=== PATIENT | male | born 1945 | race Caucasian/White ===

== ENCOUNTER 2018-04-10 14:44 | Outpatient (CLI) | payer MEDICARE, OTHER ==
--- NOTE | 2018-04-10 16:59 | MRI Report ---
Procedure Date: 04/10/2018 Accession Number: [id number] / [id number] Procedure: MRI - Knee RT W/O CPT Code: FULL RESULT: EXAM: RIGHT KNEE MRI WITHOUT CONTRAST EXAM DATE: 04/10/2018 03:23 PM. CLINICAL HISTORY: Chondromalacia patellae, left knee, right knee. COMPARISON: None. TECHNIQUE: Multiplanar, multisequence T1-weighted and fluid-sensitive sequences of the knee without contrast. Other: None. FINDINGS: Bones: Subchondral edema in the medial tibial condyle. Small medial compartment osteophytes. The lateral and patellofemoral compartments appear unremarkable.. Articular Cartilage: There is moderate to severe hyaline cartilage thinning in the medial compartment with regions of denuded bone. Medial Meniscus: There is a complex tear of the body of the medial meniscus with an adjacent 7 x 16 x 32 mm medial parameniscal cyst. There is moderate medial extrusion. There is a longitudinal tear of the posterior horn. Lateral Meniscus: The lateral meniscus is intact. Cruciate Ligaments: The anterior and posterior cruciate ligaments are intact. Collateral Ligaments: The medial collateral and lateral collateral ligamentous structures are intact. Tendons: The quadriceps, patellar, semimembranosus, and popliteus tendons are unremarkable. Musculature: No edema or fatty atrophy. Other: Small joint effusion. There is a small popliteal cyst. Subcutaneous fluid is seen tracking along the medial aspect of the joint suggesting a leak from the popliteal cyst off from the parameniscal cysts. No loose bodies. The medial and lateral retinacula are intact. The subcutaneous tissues and fat pads are unremarkable. IMPRESSION: 1. Moderate medial compartment osteoarthritis. 2. Complex tear of the body of the medial meniscus with extrusion. Accompanying longitudinal tear of the posterior horn. Medial parameniscal cyst, which appears to have leaked into the subcutaneous tissues. 3. Small joint effusion with a popliteal cyst. [facility] MUSCULOSKELETAL RADIOLOGY SECTION
--- NOTE | 2018-04-10 17:27 | MRI Report ---
Procedure Date: 04/10/2018 Accession Number: [id number] / [id number] Procedure: MRI - Knee LT W/O CPT Code: FULL RESULT: EXAM: LEFT KNEE MRI WITHOUT CONTRAST EXAM DATE: 04/10/2018 03:35 PM. CLINICAL HISTORY: Chondromalacia patellae, left knee and right knee. COMPARISON: None. TECHNIQUE: Multiplanar, multisequence T1-weighted and fluid-sensitive sequences of the knee without contrast. Other: None. FINDINGS: Bones: There is moderate marrow edema in the medial femoral and tibial condyles. There are small medial compartment osteophytes. The lateral and patellofemoral compartments appear unremarkable.. Articular Cartilage: There is moderate to severe thinning of the hyaline cartilage in the medial compartment. There are small medial compartment osteophytes. There is mild thinning of the hyaline cartilage of the lateral compartment. The patellofemoral compartment appears unremarkable. Medial Meniscus: There is a radial tear of the posterior horn of the medial meniscus. There is medial extrusion of the body with a complex tear. Lateral Meniscus: The lateral meniscus is intact. Cruciate Ligaments: The anterior and posterior cruciate ligaments are intact. Collateral Ligaments: The medial collateral and lateral collateral ligamentous structures are intact. Tendons: The quadriceps, patellar, semimembranosus, and popliteus tendons are unremarkable. Musculature: No edema or fatty atrophy. Other: There is a moderate-sized joint effusion with a large popliteal cyst.. No loose bodies. The medial and lateral retinacula are intact. The subcutaneous tissues and fat pads are unremarkable. IMPRESSION: 1. Moderate medial compartment osteoarthritis. 2. Radial tear of the posterior horn of the medial meniscus with medial extrusion and a complex tear of the body. 3. Mild lateral compartment osteoarthritis. 4. Moderate-sized joint effusion with a large popliteal cyst. RAD[facility] MUSCULOSKELETAL RADIOLOGY SECTION
== END 2018-04-10 14:45 | disposition home or self-care (01) ==
LOC: DI 14:44
PROVIDERS: ATTEND Orthopaedic Surgery Orthopaedic Trauma
DX: M17.0 Bilateral primary osteoarthritis of knee (principal); S83.242A Other tear of medial meniscus, current injury, left knee, initial encounter; M71.22 Synovial cyst of popliteal space [Baker], left knee; M25.462 Effusion, left knee; M25.461 Effusion, right knee; S83.231A Complex tear of medial meniscus, current injury, right knee, initial encounter; M71.21 Synovial cyst of popliteal space [Baker], right knee

== ENCOUNTER 2019-10-05 09:22 | Outpatient (CLI) | payer MEDICARE, OTHER ==
--- NOTE | 2019-10-05 15:27 | SLEEP CARE CONSULTATION ---
Information from patient questionnaire entered by Omaira Solis. I have reviewed and concur with the information entered by Omaira Solis. This document represents the service I personally performed and the decisions made by me, Andrew Austin MD, [facility]. History of Present Illness Reason for Visit: New patient, Previously diagnosed sleep apnea, sleep apnea on CPAP therapy Duration of Symptoms: 20 years Usual bedtime: [id number] Time it takes to fall asleep: 5 minutes Snores at night: Yes Observed to quit breathing while asleep: Yes Sleeps alone due to snoring: No Number of times waking at night: 2-3 Reasons for waking at night: reports: Bathroom Toss, Turn, or Twitch while sleeping: Yes Recalls having dreams: Yes Feels refreshed in the morning: No Morning headache: Yes (sometimes) Sleepy or fatigued during the day: Yes Ever fallen asleep while driving: No Takes day naps: Yes Dreams during day naps: No Prior sleep studies: Yes Year and Where: 2012 [facility] in [place], [place] Additional HPI information: I had the pleasure of seeing Mr. Cannon today regarding obstructive sleep apnea- hypopnea. As you know, he is a 74 year old gentleman who was diagnosed with the sleep-disordered breathing at [facility] on 03/23/2010. The sleep study report is not available. He was prescribed a CPAP device set He uses every night and all night. He is on his fourth machine which is set on 13 cmH2O. The compliance data show usage in 178 out of the past 180 nights, averaging 9.7 hours a night. The residual AHI is 0.5 and average time in large leak per day is 5 minutes. He wears a Respironics Wisp nasal mask. He gets his supplies from [employer]. He finds the treatment very beneficial. Subjective Initial [place] Sleepiness Scale score: 11 Past Medical History Past Medical History: reports: Hypertension, Congestive Heart Failure, Arthritis, Coronary Heart Disease, GERD, Attention deficit Social History The patient's occupation is retired. Patient is and lives in [place]. Have you smoked in the past 12 months: No Cigarettes per day (20/pack): 40 Years of smokin Quit date: 1990 Smoking Pack Years: 60.0 Alcohol use: No Family History Family history of sleep disordered breathing: Yes Family Hx Sleep Apnea: Sibling: Snoring (daughter), Other: Snoring Allergies and Home Medications Drug allergies reviewed: Yes Home medication list reviewed: Yes Allergy and home medication list: Meds: Amlodipine, aspirin, ctirizine, Crestor, eplerenon, Flonase, hydralazine, hydrochlorothiazide, Lovaza, metformin, metoprolol, niacin, pantoprazole, ramipril, Ranexa, and Xopenex Allergies: Actos, albuterol, clonazepam, dexamethason, Lexapro, procardia, spironolactone, sudafed, cipro, and clonidine Review of Systems Weight gain over past 5 years: 30 Cardiovascular: reports: high blood pressure, palpitations Respiratory: denies: shortness of breath, wheeze, sputum production, chronic cough, other Gastrointestinal: reports: heartburn Urinary: reports: frequency Neurological: denies: headaches, seizure, head trauma, disorientation, speech dysfunction, gait or balance problems, fainting or unconsciousness, other Psychiatric: denies: Attention Deficit Hyperactivity, anxiety, depression, mood disorder, claustrophobia, other Ear/Nose/Throat: reports: dry mouth/throat, injury to nose, wisdom teeth removed Endocrine: reports: sluggishness, too hot or cold, excessive thirst, unexplained weakness Musculoskeletal: reports: joint pain, back pain, muscle pain or cramping Immunologic: denies: sneezing, rash, itching, allergies to food or environment, other Physical Exam Vital signs obtained and entered by: Dr. Austin Blood Pressure: 164/91 Cuff size: regular Heart Rate: 64 O2 Saturation: 95 Height: 5 ft 6 in Weight: 233 lb Body Mass Index: 37.5 BMI Classification: Obesity Class 2 Neck circumference: 19 Mood/affect: normal HEENT: No craniofacial malformation Nostrils: patent to airflow Turbinates: normal Septum: midline Mouth and throat: narrow oropharynx Soft palate: long Hard palate: normal Uvula: normal Uvula visualization: 25% Mallampati Class III Tongue: enlarged in size with teeth mckenna on lateral edges Tonsils: small Chin and jaw: normal size and position Neck: normal w/o lymphadenopathy or thyromegaly Heart: regular rate and rhythm, murmur Lungs: clear bilaterally Abdomen: soft, non-tender Extremities: no edema or clubbing Neurologic: intact, no focal deficits Impression and Plan IMPRESSION: 1. Obstructive Sleep Apnea-Hypopnea Syndrome, as previously diagnosed but of unknown severity. The patient has had good treatment compliance. The current pressure setting appears effective and comfortable. The patient experiences improvement on the treatment. Narrow oropharynx and obesity are common predisposing factors for obstructive sleep apnea-hypopnea syndrome. Because the CPAP is now older than the useful life of 5 years, I will order the patient a new one and make it an autoCPAP set between 10 and 15 cmH2O. Plan: 1. Prescription made for an autoCPAP, heated humidifier, and related supplies. 2. Try a different nasal mask. 3. Attempt to lose weight. 4. Return for follow up after one month on the new machine. I spent 100% of this 20 minute visit face to face with the patient with greater than 50% of this was spent time counseling the patient and coordination of care.
[2019-10-05 15:28] VITALS: BP 164/91
== END 2019-10-05 09:23 | disposition home or self-care (01) ==
LOC: SC 09:22
PROVIDERS: ATTEND Internal Medicine Pulmonary Disease
DX: G47.33 Obstructive sleep apnea (adult) (pediatric) (principal); E66.9 Obesity, unspecified; Z68.37 Body mass index [BMI] 37.0-37.9, adult
CPT/HCPCS: 99203; G0463; 99212

== ENCOUNTER 2019-10-30 19:23 | Outpatient (CLI) | payer MEDICARE, OTHER | END 2019-10-30 19:24 | disposition home or self-care (01) | LOC: SC 19:23 | PROVIDERS: ATTEND Internal Medicine Pulmonary Disease | DX: G47.33 Obstructive sleep apnea (adult) (pediatric) (principal); G47.61 Periodic limb movement disorder | CPT/HCPCS: 95810 ==

== ENCOUNTER 2019-11-09 11:00 | Outpatient (CLI) | payer MEDICARE, OTHER ==
--- NOTE | 2019-11-10 12:01 | SLEEP CARE CONSULTATION ---
Information from patient questionnaire entered by Omaira Solis. I have reviewed and concur with the information entered by Omaira Solis. This document represents the service I personally performed and the decisions made by me, Andrew Austin MD, [facility]. History of Present Illness Reason for follow up: with sleep study Equipment type: CPAP Equipment obtained from: [facility] Prior sleep studies: Yes Year and Where: 2019 [facility] HPI additional information: HPI: Mr. Cannon returned for follow up of the sleep study he had on 10/30/2019. The polysomnography showed that the patient had poor sleep efficiency several prolonged awakenings after the sleep onset and proposal rep awakening. The sleep architecture was abnormal for sleep fragmentation and lack of REM and slow wave sleep (N3). Respiratory monitoring showed moderate obstructive sleep apnea-hypopnea (AHI = 24.7) associated with frequent arousals, oxyhemoglobin desaturation and mild hypoxia (hodan oxygen saturation of 87%). The respiratory events occurred independently of sleep stage and body position (supine AHI = 16.2; non-supine = 28.96). Snore was light in intensity. There was severe periodic leg movement of sleep contributing to the sleep fragmentation. Cardiac rhythm was normal sinus rhythm with occasional premature ventricular contractions. No abnormal behavior (parasomnia) observed during the night. The patient was informed of these findings. I explained to him the pathophysiology behind obstructive sleep apnea. We then spent quite a bit of time discussing different treatment options. For mild obstructive sleep apnea, surgery and oral appliance are alternatives to nasal CPAP therapy but in moderate or severe cases, nasal CPAP is the most effective and reliable treatme nt. Weight loss in an obese individual is strongly recommended. After some discussion, he opted to continue with the CPAP therapy. Presently, he is using a CPAP at home set at 13 cmH2O. Subjective Patient concerns: reports: mask discomfort, air blowing in eyes, dry mouth, nose, throat Initial [place] Sleepiness Scale score: 11 Current [place] Sleepiness Scale score: 8 Allergies and Home Medications Drug allergies reviewed: Yes Home medication list reviewed: Yes Review of Systems Review of systems same as previous: Yes Physical Exam Weight: 233 lb Impression and Plan IMPRESSION: 1. Obstructive Sleep Apnea-Hypopnea Syndrome, moderate, associated with mild hypoxemia and sleep fragmentation. The patient has had good CPAP compliance all along. He also experiences benefits from the treatment. Because the CPAP is now older than the useful life of 5 years, I will order the patient a new one and make it an autoCPAP set between 8 and 13 cmH2O. PLAN: 1. Prescription made for an autoCPAP, heated humidifier, and related supplies. 2. Attempt to lose weight and avoid alcohol consumption near bedtime. 3. Return for follow up after one month on the new machine. I spent 100% of this visit face to face with the patient with greater than 50% of this was spent time counseling the patient and coordination of care.
== END 2019-11-09 11:01 | disposition home or self-care (01) ==
LOC: SC 11:00
PROVIDERS: ATTEND Internal Medicine Pulmonary Disease
DX: G47.33 Obstructive sleep apnea (adult) (pediatric) (principal)
CPT/HCPCS: 99213; G0463; 99212

== ENCOUNTER 2020-01-26 14:47 | Outpatient (CLI) | payer MEDICARE, OTHER ==
--- NOTE | 2020-01-26 14:33 | SLEEP CARE CONSULTATION ---
Information from patient questionnaire entered by Rosetta Albarado. I have reviewed and concur with the information entered by Rosetta Albarado. This document represents the service I personally performed and the decisions made by me, Andrew Austin MD, [facility]. History of Present Illness Previous diagnosis: Moderate, Obstructive Sleep Apnea-Hypopnea Syndrome AHI: 24.7 (in 2019) Reason for follow up: first compliance after device update Equipment type: CPAP Equipment obtained from: [facility] additional information: HPI: Mr. Cannon was called today to follow up of nasal CPAP therapy. He was diagnosed to have moderate obstructive sleep apnea-hypopnea syndrome. The patient wears a DreamWisp nasal mask. [employer] is his durable medical supplier. He reports using the device nightly and all through the night. The compliance report shows usage in 30 nights out of the past 30 nights, averaging 10.4 hours a night. The > 4 hour compliance rate for the past 30 days is 100%. He comp lained of no particular problem with the device such as soreness on the face, dry nose, epistaxis, nasal congestion or headache. He thinks that the pressure is comfortable. On the CPAP therapy he notices improvement in his sleep quality, and that he wakes up feeling fresher in the morning and more awake/alert during the day. [place] Sleepiness Scale score is 10. His notices no snore at all. The average residual AHI is 1.0; and average time in large leak per day is 1 minute. The 90th percentile pressure is 10.4 cmH2O. CPAP Compliance Data - Data Reviewed with Patient Average duration of nightly device use: 10.45 Compliance rate %: 100 Current pressure setting (cmH2O): 8-13 Humidity settin Heated hose settin Average residual AHI: 1.0 Average large leak: 1 min 10 sec Subjective Initial [place] Sleepiness Scale score: 11 Allergies and Home Medications Drug allergies reviewed: Yes Home medication list reviewed: Yes Review of Systems Review of systems same as previous: Yes Physical Exam Height: 5 ft 6 in Impression and Plan IMPRESSION: 1. Obstructive Sleep Apnea-Hypopnea Syndrome, moderate (AHI was 24.7), with the patient doing well on nasal CPAP therapy. He has excellent compliance and significant clinical improvement. The current pressure appears effective and comfortable. His mask fits fairly well. Overall, he is very satisfied with treatment and plans to continue with it long-term. No adjustment is necessary today. PLAN: 1. Continue with autoCPAP set at 8 - 13 cmH2O. 2. Try Respironics DreamWear nasal cushion mask or ResMed N30i mask 4. Return in one year for follow up or earlier if there is any problem with the treatment. I spent 100% of the 12 minute phone call with the patient with greater than 50% of this spent counseling the patient and coordination of care.
== END 2020-01-26 14:48 | disposition home or self-care (01) ==
LOC: SC 14:47
PROVIDERS: ATTEND Internal Medicine Pulmonary Disease
DX: G47.33 Obstructive sleep apnea (adult) (pediatric) (principal)

== ENCOUNTER 2021-01-23 10:58 | Outpatient (CLI) | payer MEDICARE, OTHER ==
--- NOTE | 2021-01-23 13:54 | SLEEP CARE CONSULTATION ---
Information from patient questionnaire entered by Rosetta Albarado. I have reviewed and concur with the information entered by Rosetta Albarado. This document represents the service I personally performed and the decisions made by me, Andrew Austin MD, [facility]. History of Present Illness Service Date and Time: 01/23/2021 1058 Previous diagnosis: Moderate, Obstructive Sleep Apnea-Hypopnea Syndrome AHI: 24.7 (in 2019)(RDI - 12 in 1996) Reason for follow up: annual (last seen 12/2019) Equipment type: CPAP Equipment obtained from: [employer] Mask style: Nasal Mask brand: Respironics (DreamWisp) Prior sleep studies: Yes Year and Where: 2019 - [facility] ; 1996- [facility] Type of Sleep Study: Polysomnography HPI additional information: HPI: Mr. Cannon was diagnosed to have moderate obstructive sleep apnea-hypopnea syndrome and returns today for his annual follow up of CPAP therapy. The patient purchased the device from [employer] and was fitted with a [employer] [place] nasal mask. He says that he prefers the Respironics EasyLife but the durable medical supplier could not find one for him. He continues to use the device nightly and all through the night. The compliance report shows that he uses the device 179 nights out of the past 180 nights, averaging 11 hours a night. He complains of no particular problem with the device such as soreness on the face, dry nose, epistaxis, nasal congestion or headache. He thinks that the pressure of 8 - 13 cmH2O is comfortable. On the CPAP therapy he notices improvement in his sleep quality, and that he wakes up feeling fresher in the morning and more awake/alert during the day. His notices no snore at all. [place] Sleepiness Scale score is 10. The average residual AHI is 1.4; and average time in large leak per day is 6 minutes a night. The 90th percentile pressure is 11.6 cmH2O. CPAP Compliance Data - Data Reviewed with Patient Average duration of nightly device use: 10 hr 58 min Compliance rate %: 99.4 (180 days) Current pressure setting (cmH2O): 8-13 Humidity settin Heated hose settin Average residual AHI: 1.4 Average large leak: 6 min 58 sec Subjective Patient concerns: reports: mask discomfort, air blowing in eyes, mask leak noise, dry mouth, nose, throat, other (headache) Initial [place] Sleepiness Scale score: 11 (in 2019) Current [place] Sleepiness Scale score: 10 Allergies and Home Medications Drug allergies reviewed: Yes Home medication list reviewed: Yes Review of Systems Review of systems same as previous: Yes Physical Exam Height: 5 ft 6 in Weight: 233 lb Body Mass Index: 37.5 BMI Classification: Obese Impression and Plan IMPRESSION: 1. Obstructive Sleep Apnea-Hypopnea Syndrome, moderate (AHI was 24.7) with the patient continuing to do well on nasal CPAP therapy. He has excellent compliance and significant clinical benefits. The current pressure appears effective and comfortable. Overall, he is very satisfied with treatment and plans to continue with it long-term. No adjustment is necessary today. I showed him where he can find the Respironics EasyLife nasal mask. PLAN: 1. Continue with autoCPAP set at 8 - 13 cm H2O. 2. Try to lose weight 3. He will go to [employer] to find the Respironics EasyLife nasal mask. 4. Return in one year for follow up or earlier if there is any problem with the treatment. Follow up recommended for: Weight management Visit Type: In Office Time Spent with Patient (minutes): 20 Provider Statement: I spent 100% of the Face to Face Visit with the patient with greater than 50% spent counseling the patient and coordination of care.
== END 2021-01-23 10:59 | disposition home or self-care (01) ==
LOC: SC 10:58
PROVIDERS: ATTEND Internal Medicine Pulmonary Disease
DX: G47.33 Obstructive sleep apnea (adult) (pediatric) (principal); E66.9 Obesity, unspecified; Z68.37 Body mass index [BMI] 37.0-37.9, adult
CPT/HCPCS: 99213; G0463; 99212

== ENCOUNTER 2021-03-20 16:44 | Outpatient (CLI) | payer MEDICARE, OTHER | END 2021-03-20 16:45 | disposition home or self-care (01) | LOC: COV 16:44 | PROVIDERS: ATTEND Internal Medicine Interventional Cardiology | DX: Z01.812 Encounter for preprocedural laboratory examination (principal); I25.118 Atherosclerotic heart disease of native coronary artery with other forms of angina pectoris; Z20.822 Contact with and (suspected) exposure to COVID-19 ==

== ENCOUNTER 2021-04-24 16:35 | Outpatient (CLI) | payer MEDICARE, OTHER | END 2021-04-24 16:36 | disposition home or self-care (01) | LOC: COV 16:35 | PROVIDERS: ATTEND Nurse Practitioner | DX: Z01.812 Encounter for preprocedural laboratory examination (principal); I25.118 Atherosclerotic heart disease of native coronary artery with other forms of angina pectoris; Z20.822 Contact with and (suspected) exposure to COVID-19 ==

== ENCOUNTER 2021-10-26 07:00 | Outpatient (CLI) | payer MEDICARE, OTHER ==
[2021-10-26] MEDS ORDERED: ALBUTEROL 1 PUFF INH STA (10:37)
== END 2021-10-26 23:59 | disposition home or self-care (01) ==
LOC: RT 07:00
PROVIDERS: ATTEND Internal Medicine
DX: R06.00 Dyspnea, unspecified (principal); R06.02 Shortness of breath
CPT/HCPCS: 94060

== ENCOUNTER 2021-10-26 09:27 | Outpatient (CLI) | payer MEDICARE, OTHER ==
--- NOTE | 2021-10-26 09:54 | XRAY Report ---
PROCEDURE: Chest 2 View X-Ray INDICATIONS: SHORTNESS OF BREATH TECHNIQUE: 2 view(s) of the chest. COMPARISON: None. FINDINGS: SUPPORT DEVICES: Sternotomy wires are well aligned. LUNGS/PLEURA: No focal consolidation, pleural effusion or space-occupying pneumothorax. MEDIASTINUM: The cardiomediastinal silhouette is within normal limits. BONES/SOFT TISSUES: No acute abnormality. IMPRESSION: 1.No acute cardiopulmonary abnormality. Reviewed by: Rajesh Suazo MD on 10/26/2021 9:53 AM [facility] Approved by: Rajesh Suazo MD on 10/26/2021 9:53 AM [facility] Station ID: [id number]
== END 2021-10-26 09:28 | disposition home or self-care (01) ==
LOC: DI 09:27
PROVIDERS: ATTEND Internal Medicine
DX: R06.02 Shortness of breath (principal); R05.9 Cough, unspecified